=== PATIENT | male | born 1955 | race Caucasian/White ===

== ENCOUNTER 2016-07-30 12:38 | Outpatient (CLI) | payer OTHER | END 2016-07-30 12:39 | disposition home or self-care (01) | DRG 561 | LOC: CONVCARE 12:38 | PROVIDERS: ATTEND Orthopaedic Surgery | DX: S52.032D Displaced fracture of olecranon process with intraarticular extension of left ulna, subsequent encounter for closed fracture with routine healing (principal) | CPT/HCPCS: 73070 ==

== ENCOUNTER 2016-08-27 11:43 | Outpatient (CLI) | payer OTHER | END 2016-08-27 11:44 | disposition home or self-care (01) | DRG 561 | LOC: CONVCARE 11:43 | PROVIDERS: ATTEND Orthopaedic Surgery | DX: S52.032D Displaced fracture of olecranon process with intraarticular extension of left ulna, subsequent encounter for closed fracture with routine healing (principal) | CPT/HCPCS: 73070 ==

== ENCOUNTER 2016-10-29 11:15 | Outpatient (CLI) | payer OTHER | END 2016-10-29 11:16 | disposition home or self-care (01) | DRG 561 | LOC: RAD 11:15 | PROVIDERS: ATTEND Orthopaedic Surgery | DX: S52.022D Displaced fracture of olecranon process without intraarticular extension of left ulna, subsequent encounter for closed fracture with routine healing (principal) | CPT/HCPCS: 73070 ==